=== PATIENT | male | born 1950 | race Asian ===

== ENCOUNTER 2023-12-23 15:02 | Emergency (ER) | payer OTHER ==
[~2023-12-23] VITALS: Ht 160 cm; Wt 59.0 kg
[2023-12-23 15:32] VITALS: BP_SYST 131; PULSE 66; RESP 16; TEMP 97; O2SAT 98
== END 2023-12-23 18:00 | disposition left against medical advice (07) ==
LOC: SED 15:02
DX: S61.512A Laceration without foreign body of left wrist, initial encounter (principal); Z53.21 Procedure and treatment not carried out due to patient leaving prior to being seen by health care provider; W26.8XXA Contact with other sharp object(s), not elsewhere classified, initial encounter; Y93.89 Activity, other specified; Y92.89 Other specified places as the place of occurrence of the external cause; Y99.8 Other external cause status